=== PATIENT | male | born 1935 | race Caucasian/White ===

== ENCOUNTER 2016-09-26 18:50 | Emergency (ER) | payer MEDICARE, BC ==
[~2016-09-26] VITALS: Ht 182.9 cm; Wt 87.0 kg
[~2016-09-26 18:50] MED LIST: ASPI81TA82 PO; CARV3.125 PO; CETI10 PO; ENAL10TA7 PO; ROSU40 PO; TAMS0.4C67 PO; TICA90 PO; TIMO0.5S29 EACH EYE; XALA0.00 EACH EYE
[2016-09-26 19:02] VITALS: BP 150/99; PULSE 61; RESP 17; TEMP 97.5; O2SAT 96
[2016-09-26 19:23] VITALS: RESP 18; O2SAT 96
[2016-09-26] MEDS ORDERED: RESP: ALBUTEROL 2.5 MG/IPRATROPIUM 0.5 MG NEB (SCH) NEB ONE (19:30)
[2016-09-26] MEDS ORDERED: SODIUM CHLORIDE 0.9% FLUSH 5 ML FLUSH IVF PRN (19:30)
[2016-09-26 19:43] VITALS: BP_SYST 159; BP_SYST 171; BP_DIAS 86; BP_DIAS 97; PULSE 58; RESP 18; O2SAT 100
[2016-09-26 19:46] LABS: AUTOMATED NEUTROPHIL # 3.3 TH/MM3 (1.8-7.7); BASOPHIL % 0.4 % (0.0-2.0); EOSINOPHIL # 0.1 TH/MM3 (0-0.4); EOSINOPHIL % 2.9 % (0.0-4.0); HEMATOCRIT 44.4 % (39.0-51.0); HEMO FLAGS DIFF FINAL; LYMPH % 21.1 % (9.0-44.0); MEAN CELL VOLUME 90.9 FL (80.0-100.0); MONO % 7.9 % (0.0-8.0); NEUT % 67.7 % (16.0-70.0); PLATELET COUNT 179 TH/MM3 (150-450); RED BLOOD COUNT 4.88 MIL/MM3 (4.50-5.90); RED CELL DISTRIBUTION WIDTH 12.7 % (11.6-17.2); WHITE BLOOD COUNT 4.8 TH/MM3 (4.0-11.0)
[2016-09-26] MEDS ORDERED: ROSU1TAB10 PO (19:52)
[2016-09-26] MEDS ORDERED: ENAL10TA PO (19:52)
[2016-09-26] MEDS ORDERED: CARV3.12 PO (19:52)
[2016-09-26] MEDS ORDERED: [UNRECOGNIZED DRUG - CODE] PO (19:52)
[2016-09-26] MEDS ORDERED: TAMS0.4C4 PO (19:52)
[2016-09-26] MEDS ORDERED: BRIL90TA PO (19:52)
[2016-09-26] MEDS ORDERED: ASPI1TAB69 PO (19:53)
[2016-09-26 19:55] LABS: CHLORIDE 105 MEQ/L (98-107); POTASSIUM 4.1 MEQ/L (3.5-5.1); SODIUM (NA) 141 MEQ/L (136-145)
[2016-09-26 19:59] LABS: ANION GAP 8 MEQ/L (5-15); BLOOD UREA NITROGEN 18 MG/DL (7-18); MAGNESIUM 2.1 MG/DL (1.5-2.5)
[2016-09-26 20:00] LABS: PROTHROMBIN TIME - PATIENT 11.6 SEC (9.8-11.6)
[2016-09-26 20:02] LABS: ALT (GPT) 26 U/L (12-78); AST (GOT) 20 U/L (15-37); GLOMERULAR FILTRATION RATE 75 ML/MIN (>89)
[2016-09-26 20:03] LABS: TOTAL BILIRUBIN ADULT 0.7 MG/DL (0.2-1.0)
[2016-09-26 20:05] LABS: ALKALINE PHOSPHATASE 64 U/L (45-117); CREATINE KINASE 215 U/L (39-308)
--- NOTE | 2016-09-26 20:09 | RADHPO ---
EXAM DATE/TIME: 09/26/2016 19:56 [place] COMPARISON: CHEST SINGLE AP, June 25, 2016, 15:47. INDICATIONS : Cough, wheezing and shortness of breath. MEDICAL HISTORY : Hypertension. SURGICAL HISTORY : Stents. ENCOUNTER: Initial ACUITY: 1 week PAIN SCORE: 0/10 LOCATION: Bilateral chest FINDINGS: PA and lateral views of the chest demonstrate the lungs to be symmetrically aerated without evidence of mass, infiltrate or effusion. The cardiomediastinal contours are unremarkable. Osseous structure s are intact. CONCLUSION: No acute disease. Lj Ortega MD on September 26, 2016 at 20:07 Board Certified Radiologist. This report was verified electronically.
[2016-09-26 20:17] LABS: CKMB 2.6 NG/ML (0.5-3.6)
[2016-09-26 20:40] VITALS: BP 162/90; PULSE 62; RESP 18; O2SAT 97
[2016-09-26] MEDS ORDERED: ALBUAER3 INH (21:02)
--- NOTE | 2016-09-26 21:03 | PD ---
HPI Chief Complaint: Respiratory Symptoms Time Seen by Provider: 19:08 Travel History International Travel<30 days: No Contact w/Intl Traveler<30days: No Traveled to known affect area: No History of Present Illness HPI Patient is a 81-year-old male presents to emergency department with cough and congestion for the past week. Patient states he went to his primary care provider who prescribed him an antibiotic which she has finished and he is continuing to have cough and congestion. He called his neighbor today who helps him with chores around the house and told him he wanted him to come stay with him because he was starting to feel little short of breath. Patient's neighbor came over and told him he really should consider coming into the emergency department which she did. Patient states that he has not been on an inhaler in the past. He also conveys a history of a small volume hematemesis with blood streaked in his mucus time one episode. Denies any fever denies any leg swelling. Patient has a history of stenting in June of this year after an TX. His sponge diver told him that he had an abnormal stress test which showed that he had some level of damage at the bottom dose part of his heart. He states he had to return in the next month and have 2 additional stents placed as well. He is taking his Berlinta an all of his other heart medications. He denies any chest pain. PFSH Past Medical History Hx Anticoagulant Therapy: Yes (81 MG ASA) Cancer: Yes (BLADDER AND PROSTRATE) Cardiovascular Problems: Yes ([place], hypercholesterol, sent to [facility]) High Cholesterol: Yes Diminished Hearing: No Glaucoma: Yes Hypertension: Yes Immunizations Current: Yes Tetanus Vaccination: < 5 Years Influenza Vaccination: Yes Past Surgical History Appendectomy: Yes Eye Surgery: Yes (CATARACT, REPAIR OF RETINAL DETACHMENT) Genitourinary Surgery: Yes (PROSTATE BIOPSY) Social History Alcohol Use: Yes (OCC) Tobacco Use: No Substance Use: No Allergies-Medications (Allergen,Severity, Reaction): Uncoded Allergies: STEROIDS (Adverse Reaction, Severe, ELEVATES EYE PRESSURES, 09/26/16) Reported Meds & Prescriptions Reported Meds & Active Scripts Active Proair Hfa 8.5 GM Inh (Albuterol Sulfate) 90 Mcg/Act Aer 1 Puff INH Q4H PRN 108 mcg/actuation Reported Aspirin 81 Mg Tabdr 81 Mg PO DAILY Brilinta (Ticagrelor) 90 Mg Tab 90 Mg PO BID Rosuvastatin (Rosuvastatin Calcium) 40 Mg Tab 40 Mg PO DAILY Carvedilol 3.125 Mg Tab 3.125 Mg PO BID Enalapril (Enalapril Maleate) 10 Mg Tab 10 Mg PO BID Tamsulosin (Tamsulosin HCl) 0.4 Mg Cap 0.4 Mg PO BID Iophen DM-NR Liq (Dextromethorphan-Guaifenesin Liq) 10-100 Mg/5 Ml Liq 5 Ml PO Q4H PRN Cetirizine (Cetirizine HCl) 10 Mg Tab 10 Mg PO DAILY Review of Systems Except as stated in HPI: all other systems reviewed are Neg Physical Exam Narrative GENERAL: Well-developed well-nourished in no apparent distress. SKIN: Warm and dry. HEAD: Atraumatic. Normocephalic. EYES: Pupils equal and round. No scleral icterus. No injection or drainage. ENT: No nasal bleeding or discharge. Mucous membranes pink and moist. TMs clear bilaterally, oropharynx clear. NECK: Trachea midline. No JVD. CARDIOVASCULAR: Regular rate and rhythm. No murmur appreciated. RESPIRATORY: No accessory muscle use. Mild wheezing and rhonchi in all lung masters. No rales appreciated. Breath sounds equal bilaterally. GASTROINTESTINAL: Abdomen soft, non-tender, nondistended. Hepatic and splenic margins not palpable. MUSCULOSKELETAL: No obvious deformities. No clubbing. No cyanosis. No edema. No edema NEUROLOGICAL: Awake and alert. No obvious cranial nerve deficits. Motor grossly within normal limits. Normal speech. PSYCHIATRIC: Appropriate mood and affect; insight and judgment normal. Data Data Last Documented VS Vital Signs Date Time Temp Pulse Resp B/P Pulse Ox O2 Delivery O2 Flow Rate FiO2 09/26/16 21:59 18 98 09/26/16 21:44 58 147/83 Room Air 09/26/16 19:02 97.5 Orders Electrocardiogram (09/26/16 19:22) Ckmb (Isoenzyme) Profile (09/26/16 19:22) Complete Blood Count With Diff (09/26/16 19:22) Comprehensive Metabolic Panel (09/26/16 19:22) Magnesium (Mg) (09/26/16 19:22) Prothrombin Time / Inr (Pt) (09/26/16 19:22) Act Partial Throm Time (Ptt) (09/26/16 19:22) Troponin I (09/26/16 19:22) Ecg Monitoring (09/26/16 19:22) Bilateral Bp Monitoring (09/26/16 19:22) Iv Access Insert/Monitor (09/26/16 19:22) Oximetry (09/26/16 19:22) Oxygen Administration (09/26/16 19:22) Sodium Chloride 0.9% Flush (Ns Flush) (09/26/16 19:30) Chest, Pa & Lat (09/26/16 19:22) Albuterol-Ipratropium Neb (Duoneb Neb) (09/26/16 19:30) CKMB (09/26/16 19:35) CKMB% (09/26/16 19:35) Albuterol Hfa Inh (Proair Hfa Inh) (09/26/16 21:15) Resp Mdi / Spacer Instruction (09/26/16 ) Labs Laboratory Tests Test 09/26/16 19:35 White Blood Count 4.8 TH/MM3 Red Blood Count 4.88 MIL/MM3 Hemoglobin 14.7 GM/DL Hematocrit 44.4 % Mean Corpuscular Volume 90.9 FL Mean Corpuscular Hemoglobin 30.0 PG Mean Corpuscular Hemoglobin 33.0 % Concent Red Cell Distribution Width 12.7 % Platelet Count 179 TH/MM3 Mean Platelet Volume 9.7 FL Neutrophils (%) (Auto) 67.7 % Lymphocytes (%) (Auto) 21.1 % Monocytes (%) (Auto) 7.9 % Eosinophils (%) (Auto) 2.9 % Basophils (%) (Auto) 0.4 % Neutrophils # (Auto) 3.3 TH/MM3 Lymphocytes # (Auto) 1.0 TH/MM3 Monocytes # (Auto) 0.4 TH/MM3 Eosinophils # (Auto) 0.1 TH/MM3 Basophils # (Auto) 0.0 TH/MM3 CBC Comment DIFF FINAL Differential Comment Prothrombin Time 11.6 SEC Prothromb Time International 1.0 RATIO Ratio Activated Partial 27.0 SEC Thromboplast Time Sodium Level 141 MEQ/L Potassium Level 4.1 MEQ/L Chloride Level 105 MEQ/L Carbon Dioxide Level 28.0 MEQ/L Anion Gap 8 MEQ/L Blood Urea Nitrogen 18 MG/DL Creatinine 0.97 MG/DL Estimat Glomerular Filtration 75 ML/MIN Rate Random Glucose 104 MG/DL Calcium Level 8.5 MG/DL Magnesium Level 2.1 MG/DL Total Bilirubin 0.7 MG/DL Aspartate Amino Transf 20 U/L (AST/SGOT) Alanine Aminotransferase 26 U/L (ALT/SGPT) Alkaline Phosphatase 64 U/L Total Creatine Kinase 215 U/L Creatine Kinase MB 2.6 NG/ML Troponin I 0.02 NG/ML Total Protein 7.5 GM/DL Albumin 3.6 GM/DL [facility] Medical Decision Making Medical Screen Exam Complete: Yes Emergency Medical Condition: Yes Interpretation(s) EKG shows normal sinus rhythm left axis deviation and normal R-wave progression. T-wave inversions in lead [address] T changes are seen.. He has Q waves in lead II, III, and F aVF consistent with a prior inferior TX. Comparison to 07/29/2016 shows no change. This an abnormal EKG. Differential Diagnosis ACS unlikely, bronchitis, COPD. Narrative Course Patient is a 81-year-old male with a history of cigarette smoking who states he quit after his heart attack but never states he continues to smoke. He presents today with wheezing and rhonchi blood streaked sputum which all is consistent with bronchitis. Troponin negative EKG reviewed and shows changes consistent with inferior TX which patient has had by his history. Patient has no convincing symptoms or signs for acute TX. Patient was given duo nebs in the emergency department and on revisit is much less tachypneic lungs are clear. Subjectively he has been feeling much better as well. His labs reviewed and showed no concerning of normality. Chest x-ray is clear. Discussed with him the diagnosis and symptomatic management home. He is provided a inhaler in the emergency department as well as a spacer. Discussed need for follow-up with a primary care physician he is employed with Dr. Paul in the morning. Diagnosis Primary Impression: Bronchitis Med/Other Pt SpecificInfo: Prescription(s) given Scripts Albuterol 8.5 GM Inh (Proair Hfa 8.5 GM Inh)90 Mcg/Act Aer1 Puff INH Q4H PRN ( SHORTNESS OF BREATH) #1 INHALER Ref 0 108 mcg/actuation Prov:Deandre Santos MD 09/26/16 Disposition: 01 DISCHARGE HOME Condition: Stable Deandre Santos MD Sep 26, 2016 21:02
[2016-09-26] MEDS ORDERED: ALBUTEROL SULFATE 90 MCG/ACT HFA 8 GM INHALER INH ONE (21:15)
[2016-09-26 21:44] VITALS: BP 147/83; PULSE 58; RESP 18; O2SAT 96
--- NOTE | 2016-09-26 23:25 | EKG ---
Date Performed: 09/26/2016 Time Performed: 19:23:42 PTAGE: 81 years EKG: Sinus bradycardia Leftward axis Inferior infarct - age undetermined - with possible posteri or extension Abnormal ECG PREVIOUS TRACING : 07/29/2016 05.59 No significant change from previous tracing noted. DOCTOR: Mg Richard Interpretating Date/Time 09/26/2016 23:24:55
== END 2016-09-26 22:07 | disposition home or self-care (01) ==
LOC: PHED 18:50
DX: J40 Bronchitis, not specified as acute or chronic (principal); E78.00 Pure hypercholesterolemia, unspecified; I25.2 Old myocardial infarction; I10 Essential (primary) hypertension; Z87.891 Personal history of nicotine dependence; Z79.82 Long term (current) use of aspirin; R06.82 Tachypnea, not elsewhere classified
CPT/HCPCS: 71020; 80053; 82550; 82552; 83735; 84484; 85025; 85610; 85730; 93005; 94664

== ENCOUNTER 2017-12-27 18:09 | Emergency (ER) | payer BC, MEDICARE ==
[~2017-12-27] VITALS: Ht 180.3 cm; Wt 90.1 kg
[~2017-12-27 18:09] MED LIST changes: +ALBUAER3 INH; +ASPI1TAB69 PO; -ASPI81TA82 PO; +BRIL90TA PO; +CARV3.12 PO; -CARV3.125 PO; +ENAL10TA PO; -ENAL10TA7 PO; +ROSU1TAB10 PO; -ROSU40 PO; +TAMS0.4C4 PO; -TAMS0.4C67 PO; -TICA90 PO; -TIMO0.5S29 EACH EYE; -XALA0.00 EACH EYE; +[UNRECOGNIZED DRUG - CODE] PO
[2017-12-27 18:29] VITALS: BP 179/87; PULSE 68; RESP 18; TEMP 97.5; O2SAT 99
--- NOTE | 2017-12-27 18:56 | PD ---
HPI Chief Complaint: Complaint Time Seen by Provider: 18:29 Travel History International Travel<30 days: No Contact w/Intl Traveler<30days: No Traveled to known affect area: No History of Present Illness HPI This patient complains of inability to urinate. He feels like his bladder is getting full. He had his yearly routine cystoscopy today. Prior to that he was able to urinate. Afterwards he has some bloody clots and decreased output. He has history of bladder cancer. Symptom severity is moderate. No alleviating factors. Duration is a few hours. PFSH Past Medical History Hx Anticoagulant Therapy: Yes (81 MG ASA) Cancer: Yes (BLADDER AND PROSTRATE) Cardiovascular Problems: Yes ([place], hypercholesterol, sent to [facility]) High Cholesterol: Yes Diminished Hearing: No Glaucoma: Yes Hypertension: Yes Immunizations Current: Yes Influenza Vaccination: Yes ?: Not Past Surgical History Appendectomy: Yes Eye Surgery: Yes (CATARACT, REPAIR OF RETINAL DETACHMENT) Genitourinary Surgery: Yes (PROSTATE BIOPSY) Social History Alcohol Use: Yes (OCC) Tobacco Use: Yes Substance Use: No Allergies-Medications (Allergen,Severity, Reaction): Uncoded Allergies: STEROIDS (Adverse Reaction, Severe, ELEVATES EYE PRESSURES, 09/26/16) Reported Meds & Prescriptions Reported Meds & Active Scripts Active Proair Hfa 8.5 GM Inh (Albuterol Sulfate) 90 Mcg/Act Aer 1 Puff INH Q4H PRN 108 mcg/actuation Reported Brilinta (Ticagrelor) 90 Mg Tab 90 Mg PO BID Rosuvastatin (Rosuvastatin Calcium) 40 Mg Tab 40 Mg PO DAILY Carvedilol 3.125 Mg Tab 3.125 Mg PO BID Enalapril (Enalapril Maleate) 10 Mg Tab 10 Mg PO BID Tamsulosin (Tamsulosin HCl) 0.4 Mg Cap 0.4 Mg PO BID Cetirizine (Cetirizine HCl) 10 Mg Tab 10 Mg PO DAILY Review of Systems General / Constitutional: No: Fever Eyes: No: Visual changes HENT: No: Headaches Cardiovascular: No: Chest Pain or Discomfort Respiratory: No: Shortness of Breath Gastrointestinal: No: Abdominal Pain Genitourinary: Positive: Hematuria, Decreased Urinary Output, Hesitancy, Dribbling, No: Dysuria Musculoskeletal: No: Pain Skin: No Rash Neurologic: No: Weakness Psychiatric: No: Depression Endocrine: No: Polydipsia Hematologic/Lymphatic: No: Easy Bruising Physical Exam Narrative GENERAL: Well-nourished, well-developed patient in no apparent distress. SKIN: Focused skin assessment reveals no rash and nodules. Skin is Warm and dry. HEAD: Atraumatic. Normocephalic. EYES: Pupils equal and round. No scleral icterus. No injection or drainage. ENT: No nasal bleeding or discharge. Mucous membranes pink and moist. NECK: Trachea midline. No JVD. CARDIOVASCULAR: Regular rate and rhythm. No murmur appreciated. RESPIRATORY: No accessory muscle use. Clear to auscultation. Breath sounds equal bilaterally. GASTROINTESTINAL: Abdomen soft, non-tender, nondistended. Hepatic and splenic margins not palpable. MUSCULOSKELETAL: No obvious deformities. No clubbing. No cyanosis. No edema. NEUROLOGICAL: Awake and alert. No obvious cranial nerve deficits. Motor grossly within normal limits. Normal speech. PSYCHIATRIC: Appropriate mood and affect; insight and judgment normal. : Circumcised penis. No testicular tenderness. No active bleeding from the meatus Data Data Last Documented VS Vital Signs Date Time Temp Pulse Resp B/P (MAP) Pulse Ox O2 Delivery O2 Flow Rate FiO2 12/27/17 19:29 87 16 136/82 (100) 100 Room Air 12/27/17 18:29 97.5 Orders Orders Urinary Catheter Insert/Apply (12/27/17 18:37) [facility] Medical Decision Making Medical Screen Exam Complete: Yes Emergency Medical Condition: Yes Medical Record Reviewed: Yes Differential Diagnosis Urinary retention, urethral injury, BPH Narrative Course I have reviewed the patient's electronic medical record. We placed a Arredondo catheter. We drained out 800 cc of bloody urine. It is becoming more clear and is draining well I spoke with Dr Ortega and he will fit the patient in tomorrow for follow- up. Patient will be sent home with a catheter in place Diagnosis Primary Impression: Acute urinary retention Additional Impression: Hematuria, gross Additional Instructions: Follow-up with your urologist Med/Other Pt SpecificInfo: Other Disposition: 01 DISCHARGE HOME Condition: Stable Jose Miguel Armstrong MD Dec 27, 2017 18:56
[2017-12-27 19:29] VITALS: BP 136/82; PULSE 87; RESP 16; O2SAT 100
[2017-12-27 20:31] VITALS: BP 168/74
== END 2017-12-27 20:33 | disposition home or self-care (01) ==
LOC: PHED 18:09
DX: R31.0 Gross hematuria (principal); R33.9 Retention of urine, unspecified; E78.00 Pure hypercholesterolemia, unspecified; H40.9 Unspecified glaucoma; I10 Essential (primary) hypertension; Z72.0 Tobacco use; Z85.51 Personal history of malignant neoplasm of bladder
CPT/HCPCS: 51702

== ENCOUNTER 2017-12-30 11:56 | Emergency (ER) | payer MEDICARE ==
[~2017-12-30] VITALS: Ht 180.3 cm; Wt 85.0 kg
[~2017-12-30 11:56] MED LIST changes: -ASPI1TAB69 PO; -[UNRECOGNIZED DRUG - CODE] PO
[2017-12-30 12:05] VITALS: BP 185/88; PULSE 96; RESP 18; TEMP 99.1; O2SAT 97
[2017-12-30] MEDS ORDERED: OXYB5TAB8 PO (12:35)
--- NOTE | 2017-12-30 12:46 | PD ---
HPI Chief Complaint: Complaint Time Seen by Provider: 12:12 Travel History International Travel<30 days: No Contact w/Intl Traveler<30days: No Traveled to known affect area: No History of Present Illness HPI Patient is an 82-year-old male who is in the postop period for transurethral prostate shaving presents emergency department for evaluation of suprapubic discomfort as well as urinary retention. Patient has a Arredondo catheter in place in his nose and the drainage is stopped. He also had some significant bloody urination after the procedure was done. The patient does not endorse any fevers nausea vomiting hypovolemia symptoms. He states his symptoms started several hours prior to arrival, gradually worsening, context as above, associated signs and symptoms as above PFSH Past Medical History Hx Anticoagulant Therapy: Yes (81 MG ASA) Cancer: Yes (BLADDER AND PROSTRATE) Cardiovascular Problems: Yes ([place], hypercholesterol, sent to [facility]) High Cholesterol: Yes Diminished Hearing: No Glaucoma: Yes Hypertension: Yes Immunizations Current: Yes Tetanus Vaccination: < 5 Years Influenza Vaccination: Yes Past Surgical History Appendectomy: Yes Eye Surgery: Yes (CATARACT, REPAIR OF RETINAL DETACHMENT) Genitourinary Surgery: Yes (PROSTATE BIOPSY) Social History Alcohol Use: Yes (Occ.) Tobacco Use: Yes (1 PPD) Substance Use: No Allergies-Medications (Allergen,Severity, Reaction): Uncoded Allergies: STEROIDS (Adverse Reaction, Severe, ELEVATES EYE PRESSURES, 09/26/16) Reported Meds & Prescriptions Reported Meds & Active Scripts Active Proair Hfa 8.5 GM Inh (Albuterol Sulfate) 90 Mcg/Act Aer 1 Puff INH Q4H PRN 108 mcg/actuation Reported Ditropan (Oxybutynin Chloride) 5 Mg Tab 5 Mg PO QID PRN Brilinta (Ticagrelor) 90 Mg Tab 90 Mg PO BID Rosuvastatin (Rosuvastatin Calcium) 40 Mg Tab 40 Mg PO DAILY Carvedilol 3.125 Mg Tab 3.125 Mg PO BID Enalapril (Enalapril Maleate) 10 Mg Tab 10 Mg PO BID Tamsulosin (Tamsulosin HCl) 0.4 Mg Cap 0.4 Mg PO BID Cetirizine (Cetirizine HCl) 10 Mg Tab 10 Mg PO DAILY Review of Systems Except as stated in HPI: all other systems reviewed are Neg Physical Exam Narrative GENERAL: Well-nourished, well-developed patient. SKIN: Focused skin assessment warm/dry. HEAD: Normocephalic. EYES: No scleral icterus. No injection or drainage. NECK: Supple, trachea midline. No JVD or lymphadenopathy. CARDIOVASCULAR: Regular rate and rhythm without murmurs, gallops, or rubs. RESPIRATORY: Breath sounds equal bilaterally. No accessory muscle use. GASTROINTESTINAL: Abdomen soft, non-tender, nondistended. No rebound no percussive tenderness, no tenderness at all, Arredondo catheter in place, grossly normal male genitalia. MUSCULOSKELETAL: No cyanosis, or edema. BACK: Nontender without obvious deformity. No CVA tenderness. Data Data Last Documented VS Vital Signs Date Time Temp Pulse Resp B/P (MAP) Pulse Ox O2 Delivery O2 Flow Rate FiO2 12/30/17 12:05 99.1 96 18 185/88 (120) 97 Orders Orders Ed Discharge Order (12/30/17 12:46) MDM Medical Decision Making Medical Screen Exam Complete: Yes Emergency Medical Condition: Yes Differential Diagnosis Arredondo catheter obstruction, hematuria, postoperative urinary retention Narrative Course Patient was room to the emergency department, the patient was irrigated by nursing prior to my examination at my request, a my examination the patient has no tenderness at all and states he is feeling much better. Arredondo catheter is now yielding urine. Vital signs stable and the patient feels well is no indication further workup at this time. Discussed need follow-up with Dr. Ortega as scheduled. He is stable for discharge Diagnosis Primary Impression: Obstructed Arredondo catheter Referrals: Ward Ortega MD Disposition: 01 DISCHARGE HOME Condition: Stable Deandre Santos MD Dec 30, 2017 12:46
== END 2017-12-30 12:55 | disposition home or self-care (01) ==
LOC: PHED 11:56
DX: T83.091A Other mechanical complication of indwelling urethral catheter, initial encounter (principal); I10 Essential (primary) hypertension; E78.00 Pure hypercholesterolemia, unspecified; I25.2 Old myocardial infarction; F17.210 Nicotine dependence, cigarettes, uncomplicated; Z98.890 Other specified postprocedural states; Z85.46 Personal history of malignant neoplasm of prostate; Z85.51 Personal history of malignant neoplasm of bladder; Z79.899 Other long term (current) drug therapy
CPT/HCPCS: 51700; 99283

== ENCOUNTER 2018-01-01 02:44 | Emergency (ER) | payer MEDICARE ==
[~2018-01-01] VITALS: Ht 180.3 cm; Wt 90.5 kg
[~2018-01-01 02:44] MED LIST changes: +OXYB5TAB8 PO
[2018-01-01 03:01] VITALS: BP 186/86; PULSE 92; RESP 18; TEMP 98.7; O2SAT 97
--- NOTE | 2018-01-01 03:18 | PD ---
HPI Chief Complaint: Complaint Time Seen by Provider: 03:12 Travel History International Travel<30 days: No Contact w/Intl Traveler<30days: No Traveled to known affect area: No History of Present Illness HPI The patient is an 82-year-old male that has a Arredondo catheter in that has stopped up now 3 times since he was operated on by Dr. Ortega on Tuesday. He is due to see Dr. Ortega tomorrow, Tuesday to have the Arredondo catheter out. The patient states he has not been able to urinate for about 3 hours and his bladder is painfully distended. He denies any fever or flank pain. He denies any nausea or vomiting. PFSH Past Medical History Hx Anticoagulant Therapy: Yes (81 MG ASA) Cancer: Yes (BLADDER AND PROSTRATE) Cardiovascular Problems: Yes ([place], hypercholesterol, sent to [facility]) High Cholesterol: Yes Diminished Hearing: No Glaucoma: Yes Hypertension: Yes Immunizations Current: Yes Tetanus Vaccination: < 5 Years Influenza Vaccination: Yes Past Surgical History Appendectomy: Yes Eye Surgery: Yes (CATARACT, REPAIR OF RETINAL DETACHMENT) Genitourinary Surgery: Yes (PROSTATE BIOPSY) Social History Alcohol Use: Yes (Occ.) Tobacco Use: Yes (1 PPD) Substance Use: No Allergies-Medications (Allergen,Severity, Reaction): Uncoded Allergies: STEROIDS (Adverse Reaction, Severe, ELEVATES EYE PRESSURES, 09/26/16) Reported Meds & Prescriptions Reported Meds & Active Scripts Active Proair Hfa 8.5 GM Inh (Albuterol Sulfate) 90 Mcg/Act Aer 1 Puff INH Q4H PRN 108 mcg/actuation Reported Ditropan (Oxybutynin Chloride) 5 Mg Tab 5 Mg PO QID PRN Brilinta (Ticagrelor) 90 Mg Tab 90 Mg PO BID Rosuvastatin (Rosuvastatin Calcium) 40 Mg Tab 40 Mg PO DAILY Carvedilol 3.125 Mg Tab 3.125 Mg PO BID Enalapril (Enalapril Maleate) 10 Mg Tab 10 Mg PO BID Tamsulosin (Tamsulosin HCl) 0.4 Mg Cap 0.4 Mg PO BID Cetirizine (Cetirizine HCl) 10 Mg Tab 10 Mg PO DAILY Review of Systems Except as stated in HPI: all other systems reviewed are Neg Physical Exam Narrative GENERAL: Well-nourished, well-developed patient in moderate apparent distress with his bladder discomfort. His vital signs show blood pressure 186/86 but are otherwise normal. SKIN: Focused skin assessment warm/dry. HEAD: Normocephalic. EYES: No scleral icterus. No injection or drainage. NECK: Supple, trachea midline. No JVD or lymphadenopathy. CARDIOVASCULAR: Regular rate and rhythm without murmurs, gallops, or rubs. RESPIRATORY: Breath sounds equal bilaterally. No accessory muscle use. GASTROINTESTINAL: Abdomen soft, with tenderness to direct palpation over the bladder. The bladder is slightly distended but the abdomen is nondistended. MUSCULOSKELETAL: No cyanosis, or edema. BACK: Nontender without obvious deformity. No CVA tenderness. Data Data Last Documented VS Vital Signs Date Time Temp Pulse Resp B/P (MAP) Pulse Ox O2 Delivery O2 Flow Rate FiO2 01/01/18 03:01 98.7 92 18 186/86 (119) 97 MDM Medical Decision Making Medical Screen Exam Complete: Yes Emergency Medical Condition: Yes Medical Record Reviewed: Yes Differential Diagnosis Urethral obstruction from clot, urethral obstruction from displaced catheter, malfunctioning catheter Narrative Course The patient has urethral obstruction from debris, mainly clots, and the catheter. The catheter was irrigated out and the patient produced 800 cc of urine. He felt much better and is going home. He will follow-up with Dr. Larson as scheduled on Tuesday. Diagnosis Primary Impression: Obstructed Arredondo catheter Additional Instructions: Follow-up with Dr. kruger on today as scheduled on Tuesday. If you have problems you are welcome to return here to the emergency department. Disposition: 01 DISCHARGE HOME Condition: Stable Rafat Hogue MD Jan 01, 2018 03:18
== END 2018-01-01 03:25 | disposition home or self-care (01) ==
LOC: PHED 02:44
DX: T83.098A Other mechanical complication of other urinary catheter, initial encounter (principal); I25.2 Old myocardial infarction; E78.00 Pure hypercholesterolemia, unspecified; H40.9 Unspecified glaucoma; I10 Essential (primary) hypertension; F17.200 Nicotine dependence, unspecified, uncomplicated; Z79.899 Other long term (current) drug therapy
CPT/HCPCS: 51700

== ENCOUNTER 2018-01-01 08:50 | Emergency (ER) | payer MEDICARE ==
[~2018-01-01] VITALS: Ht 180.3 cm; Wt 89.2 kg
[2018-01-01 08:52] VITALS: BP 190/96; PULSE 93; RESP 16; TEMP 99.1; O2SAT 95
--- NOTE | 2018-01-01 09:35 | PD ---
HPI Chief Complaint: Complaint Time Seen by Provider: 09:16 Travel History International Travel<30 days: No Contact w/Intl Traveler<30days: No Traveled to known affect area: No History of Present Illness HPI 82-year-old male here for evaluation of obstructed catheter. Patient is status post transurethral shaving by Dr. Mejia 12/27/17. He was seen in the emergency department for obstructed catheter today at 3 AM. The catheter was irrigated by nursing staff & urine flow return relieving patient's symptoms Immediately. He reports approximately 2 hours ago he noticed his Arredondo bag is nearly empty and he began to have suprapubic discomfort again. He reports pain/ pressure in the suprapubic region which is nonradiating. Symptom severity is moderate. No aggravating or alleviating factors. He denies fever, chills, nausea or vomiting, flank pain. He reports he is to see his urologist tomorrow for catheter removal. PFSH Past Medical History Hx Anticoagulant Therapy: Yes Cancer: Yes (BLADDER AND PROSTATE) Cardiovascular Problems: Yes (htn on meds, [place] with 4 stents) High Cholesterol: Yes Diminished Hearing: No Glaucoma: Yes Hypertension: Yes Immunizations Current: Yes Myocardial Infarction: Yes (4 STENTS ) Tetanus Vaccination: < 5 Years Influenza Vaccination: Yes Past Surgical History Appendectomy: Yes Eye Surgery: Yes (CATARACT, REPAIR OF RETINAL DETACHMENT) Genitourinary Surgery: Yes (PROSTATE BIOPSY) Social History Alcohol Use: Yes (rare) Tobacco Use: Yes (1 PPD) Substance Use: No Allergies-Medications (Allergen,Severity, Reaction): Uncoded Allergies: STEROIDS (Adverse Reaction, Severe, ELEVATES EYE PRESSURES, 01/01/18) . Reported Meds & Prescriptions Reported Meds & Active Scripts Active Proair Hfa 8.5 GM Inh (Albuterol Sulfate) 90 Mcg/Act Aer 1 Puff INH Q4H PRN 108 mcg/actuation Reported Ditropan (Oxybutynin Chloride) 5 Mg Tab 5 Mg PO QID PRN Brilinta (Ticagrelor) 90 Mg Tab 90 Mg PO BID Rosuvastatin (Rosuvastatin Calcium) 40 Mg Tab 40 Mg PO DAILY Carvedilol 3.125 Mg Tab 3.125 Mg PO BID Enalapril (Enalapril Maleate) 10 Mg Tab 10 Mg PO BID Tamsulosin (Tamsulosin HCl) 0.4 Mg Cap 0.4 Mg PO BID Cetirizine (Cetirizine HCl) 10 Mg Tab 10 Mg PO DAILY Review of Systems Except as stated in HPI: all other systems reviewed are Neg General / Constitutional: No: Fever Eyes: No: Visual changes HENT: No: Headaches Cardiovascular: No: Chest Pain or Discomfort Respiratory: No: Shortness of Breath Gastrointestinal: No: Abdominal Pain Genitourinary: No: Dysuria Musculoskeletal: No: Pain Skin: No Rash Physical Exam Narrative GENERAL: Alert 82-year-old male pacing in room appears physically uncomfortable. SKIN: Warm and dry. HEAD: Normocephalic. EYES: No scleral icterus. No injection or drainage. NECK: Supple, trachea midline. No JVD or lymphadenopathy. CARDIOVASCULAR: Regular rate and rhythm without murmurs, gallops, or rubs. RESPIRATORY: Breath sounds equal bilaterally. No accessory muscle use. GASTROINTESTINAL: Abdomen soft, nondistended. +ttp suprapubic region. MUSCULOSKELETAL: No cyanosis, or edema. BACK: Nontender without obvious deformity. No CVA tenderness. Data Data Last Documented VS Vital Signs Date Time Temp Pulse Resp B/P (MAP) Pulse Ox O2 Delivery O2 Flow Rate FiO2 01/01/18 08:52 99.1 93 16 190/96 (127) 95 MDM Medical Decision Making Medical Screen Exam Complete: Yes Emergency Medical Condition: Yes Differential Diagnosis Obstructed catheter, urinary retention, UTI Narrative Course 82-year-old male here with catheter obstruction. Arredondo catheter was irrigated by nursing staff and had 500 cc of clear yellow urine returned. Patient reports symptom improvement immediately. He is stable and ready for discharge. He has follow-up appointment with Dr. Ortega tomorrow for catheter removal. Diagnosis Primary Impression: Obstruction of catheter Qualified Codes: T85.698A - Other mechanical complication of other specified internal prosthetic devices, implants and grafts, initial encounter Referrals: Ward Ortega MD Additional Instructions: Keep your scheduled appointment with your urologist tomorrow Disposition: 01 DISCHARGE HOME Condition: Stable Grace Morris Shira HUNT Jan 01, 2018 09:35
== END 2018-01-01 09:58 | disposition home or self-care (01) ==
LOC: PHED 08:50
DX: T83.098A Other mechanical complication of other urinary catheter, initial encounter (principal); I10 Essential (primary) hypertension; E78.00 Pure hypercholesterolemia, unspecified; H40.9 Unspecified glaucoma; I25.2 Old myocardial infarction; F17.200 Nicotine dependence, unspecified, uncomplicated; Z79.899 Other long term (current) drug therapy
CPT/HCPCS: 99283